=== PATIENT | male | born 1950 | race Asian ===

== ENCOUNTER 2016-10-06 06:11 | Day surgery (SDC) | payer MEDICARE, MEDICAID ==
[~2016-10-06] VITALS: Ht 165.1 cm; Wt 79.1 kg
[~2016-10-06 06:11] MED LIST: ASPI-1093 PO; ATOR10TA84 PO; MONT10TA21 PO
[2016-10-06] MEDS ORDERED: SODIUM CHLORIDE 0.9% 1,000 ML IV ONE ×2 (06:30→06:35)
[2016-10-06] MEDS ORDERED: FentaNYL CITRATE-PF 100 MCG/2 ML VIAL ONE (07:17)
[2016-10-06] MEDS ORDERED: MIDAZOLAM HCL 2 MG/2 ML VIAL ONE (07:17)
[2016-10-06] MEDS ORDERED: MethylPREDNISolone SOD SUCC 125 MG/2 ML VIAL IVP ONE (09:15)
[2016-10-06] MEDS ORDERED: MethylPREDNISolone SOD SUCC 125 MG/2 ML VIAL ONE (09:28)
[2016-10-06] MEDS ORDERED: ALBUTEROL SULFATE 2.5 MG/0.5 ML NEB SOLUTION NEB ONE (12:00)
[2016-10-06] MEDS ORDERED: LIDOCAINE HCL 4% 50 ML SOLUTION TP ONE (12:00)
[2016-10-06] MEDS ORDERED: BENZOCAINE 20% 50 MCG/SPRAY 57 GM TP ONE (12:00)
[2016-10-06] MEDS ORDERED: LIDOCAINE HCL 2% 30 ML JELLY TP ONE (12:00)
== END 2016-10-06 10:50 | disposition home or self-care (01) ==
LOC: SURGERY 06:11
PROVIDERS: ATTEND Internal Medicine Critical Care Medicine
DX: J38.4 Edema of larynx (principal); B37.0 Candidal stomatitis; J45.909 Unspecified asthma, uncomplicated; F17.200 Nicotine dependence, unspecified, uncomplicated; Z72.89 Other problems related to lifestyle
CPT/HCPCS: 31623; 31624; 71010; 87015 ×2; 87070; 87101; 87147; 87205; 87220; 88108; 88312; 94640; J2250; J2930; J3010; J7030

== ENCOUNTER 2019-07-23 05:54 | Day surgery (SDC) | payer MEDICARE, MEDICAID ==
[~2019-07-23] VITALS: Ht 167.6 cm; Wt 74.0 kg
[~2019-07-23 05:54] MED LIST changes: -ASPI-1093 PO; +ASPI-1111 PO; +SODIUM CHLORIDE 0.9% 1,000 ML ONE
[2019-07-23] MEDS ORDERED: SODIUM CHLORIDE 0.9% 1,000 ML IV ONE (06:30)
[2019-07-23] MEDS ORDERED: FentaNYL CITRATE-PF 100 MCG/2 ML VIAL ONE (07:21)
[2019-07-23] MEDS ORDERED: MIDAZOLAM HCL 2 MG/2 ML VIAL ONE (07:21)
[2019-07-23] MEDS ORDERED: TAMS-13 PO (07:55)
[2019-07-23] MEDS ORDERED: PROM6.2521 PO (07:55)
[2019-07-23] MEDS ORDERED: FLUT16H NASAL (07:55)
[2019-07-23] MEDS ORDERED: FAMO20 PO (07:55)
[2019-07-23] MEDS ORDERED: DICL2100G TP (07:55)
[2019-07-23] MEDS ORDERED: PRED10 PO (07:55)
[2019-07-23] MEDS ORDERED: ESCI10TA PO (07:55)
[2019-07-23] MEDS ORDERED: CETI10TA59 PO (07:55)
[2019-07-23] MEDS ORDERED: CHOL125C2 PO (07:55)
[2019-07-23] MEDS ORDERED: LEVO-72 PO (07:55)
[2019-07-23] MEDS ORDERED: MethylPREDNISolone SOD SUCC 125 MG/2 ML VIAL IVP ONE (08:45)
[2019-07-23] MEDS ORDERED: MethylPREDNISolone SOD SUCC 125 MG/2 ML VIAL ONE (09:09)
[2019-07-23] MEDS ORDERED: LIDOCAINE 2% 30 ML JELLY ONE (18:00)
[2019-07-23] MEDS ORDERED: LIDOCAINE 4% 50 ML SOLUTION ONE (18:00)
[2019-07-23] MEDS ORDERED: BENZOCAINE 20% 50 MCG/SPRAY 57 GM ONE (18:00)
[2019-07-23] MEDS ORDERED: ALBUTEROL SULFATE 2.5 MG/0.5 ML NEB SOLUTION NEB ONE (18:00)
[2019-07-23] MEDS ORDERED: OXYGEN THERAPY IH SCH (20:00)
== END 2019-07-23 10:15 | disposition home or self-care (01) ==
LOC: SURGERY 05:54
PROVIDERS: ATTEND Internal Medicine Critical Care Medicine
DX: R05 Cough (principal); R91.1 Solitary pulmonary nodule; R04.2 Hemoptysis; J34.89 Other specified disorders of nose and nasal sinuses; J98.8 Other specified respiratory disorders; J38.4 Edema of larynx; B37.0 Candidal stomatitis; J45.909 Unspecified asthma, uncomplicated; Z86.11 Personal history of tuberculosis; Z79.899 Other long term (current) drug therapy
CPT/HCPCS: 31623; 31624; 71045; 87070; 87101; 87206; 87220; J2250; J2930; J3010; J7030; 87015; 87205; 88108; 88312

== ENCOUNTER 2020-05-05 06:48 | Day surgery (SDC) | payer MEDICARE, MEDICAID ==
[2020-05-04 12:31] LABS: COVID AG,FIA SOURCE NASOPHARYNGEAL
[~2020-05-05] VITALS: Ht 162.6 cm; Wt 80.5 kg
[~2020-05-05 06:48] MED LIST changes: -ASPI-1111 PO; -ATOR10TA84 PO; +CETI-450 PO; +FAMO20 PO; +FINA-27 PO; +MONT-35 PO; -MONT10TA21 PO; +SODIUM CHLORIDE 0.9% 1,000 ML IV ONE; +TAMS-13 PO
[2020-05-05] MEDS ORDERED: FentaNYL CITRATE-PF 100 MCG/2 ML VIAL ONE (08:10)
[2020-05-05] MEDS ORDERED: MIDAZOLAM HCL 2 MG/2 ML VIAL ONE (08:10)
[2020-05-05] MEDS ORDERED: MethylPREDNISolone SOD SUCC 125 MG/2 ML VIAL IVP ONE (08:45)
[2020-05-05] MEDS ORDERED: MethylPREDNISolone SOD SUCC 125 MG/2 ML VIAL ONE (09:36)
[2020-05-05] MEDS ORDERED: OXYGEN THERAPY IH SCH (20:00)
== END 2020-05-05 10:55 | disposition home or self-care (01) ==
LOC: SURGERY 06:48
PROVIDERS: ATTEND Internal Medicine Critical Care Medicine
DX: J38.4 Edema of larynx (principal); B37.0 Candidal stomatitis
CPT/HCPCS: 31623; 31624; 71045; 87101; 87206; 87220; 87426; C9803; J2250; J2930; J3010; J7030; 87015; 88108; 88312

== ENCOUNTER → 2023-09-12 | Day surgery (SDC) | payer OTHER ==
[~2023-09-12] VITALS: Ht 162.6 cm; Wt 77.2 kg
[~2023-09-12] MED LIST changes: +ALBUTEROL SULFATE 2.5 MG/0.5 ML NEB SOLUTION NEB ONE; +BENZOCAINE 20% 50 MCG/SPRAY 57 GM TP ONE; +FentaNYL CITRATE PF 100 MCG/2 ML VIAL ONE; +LIDOCAINE 2% 11 ML JELLY TP ONE; +LIDOCAINE 4% 50 ML SOLUTION TP ONE; +MIDAZOLAM HCL 2 MG/2 ML VIAL ONE; +MethylPREDNISolone SOD SUCC 125 MG/2 ML VIAL ONE; -SODIUM CHLORIDE 0.9% 1,000 ML IV ONE; -TAMS-13 PO; +TAMS0.4C94 PO
[2023-09-12] MEDS: SODIUM CHLORIDE 0.9% 1,000 ML IV ONE (08:00)
[2023-09-12 09:29] VITALS: PULSE 78; RESP 17; O2SAT 98
[2023-09-12] MEDS: MethylPREDNISolone SOD SUCC 125 MG/2 ML VIAL IVP ONE (10:09)
== END | disposition home or self-care (01) ==
LOC: SURGERY 06:15
PROVIDERS: ATTEND Internal Medicine Critical Care Medicine
DX: J38.4 Edema of larynx (principal); B37.0 Candidal stomatitis; Z79.899 Other long term (current) drug therapy; J45.909 Unspecified asthma, uncomplicated
CPT/HCPCS: 87206; 87101; 87220; 87070; 88108; 31623; 31624; 94640; 71045; 87015; J3010; J2250; J2919; Q9967; J7030; J7613; Z7610